=== PATIENT | female | born 1970 | race Caucasian/White ===

== ENCOUNTER 2019-07-11 17:21 | Outpatient (CLI) | payer OTHER, SELFPAY ==
--- NOTE | ~2019-07-11 | MM_ITS ---
EXAMINATION: MM screening anusha BI w andrea HISTORY: Screening mammogram TECHNIQUE: Craniocaudal and mediolateral oblique 3-D tomosynthesis images were obtained and synthetic 2-D images were generated. CAD analysis was submitted and interpreted. COMPARISON: 05/07/2014 BREAST PARENCHYMAL COMPOSITION: There are scattered areas of fibroglandular density. FINDINGS: There is no evidence of suspicious mass, calcification, or architectural distortion to sugg est malignancy in either breast. There has been no suspicious interval change. IMPRESSION: 1. No mammographic evidence of malignancy. 2. Recommend routine screening mammography in one year. BI-RADS Category 1: Negative Reviewed, dictated and finalized at location A. TANK OPERATOR
== END 2019-07-11 17:22 | disposition home or self-care (01) ==
PROVIDERS: PCP Family Medicine
DX: Z12.31 Encounter for screening mammogram for malignant neoplasm of breast (principal)
CPT/HCPCS: 77063; 77067

== ENCOUNTER 2020-06-04 12:40 | Outpatient (NON) | payer OTHER, SELFPAY ==
[2020-06-04 23:03] LABS: SARS-CoV-2 RNA PCR Negative
== END 2020-06-04 12:41 ==
LOC: ANHCOVIDDT 12:41
PROVIDERS: PCP Family Medicine; Visit Provider Physician Assistant Medical
DX: R05 Cough (principal); R09.81 Nasal congestion; R06.02 Shortness of breath; Z20.828 Contact with and (suspected) exposure to other viral communicable diseases
CPT/HCPCS: 87635; C9803; U0003

== ENCOUNTER 2021-12-07 13:14 | Emergency (ER) | payer OTHER, SELFPAY ==
[2021-12-07 13:17] VITALS: BP 165/99; PULSE 74; RESP 16; TEMP 37.1; O2SAT 100
[2021-12-07 13:20] VITALS: BP 165/99; PULSE 74; RESP 16; TEMP 37.1; O2SAT 100
--- NOTE | 2021-12-07 13:47 | ED.DIZZY ---
HPI - Dizziness General Chief Complaint: Dizziness Stated Complaint: DIZZY Time Seen by Provider: 12/07/21 13:41 Source: patient Mode of arrival: ambulatory Limitations: no limitations History of Present Illness HPI Narrative: Patient presents today complaining of a 2-day history of vertigo symptoms that she characterizes by left ear muffling, room spinning with head movement, and left ear pressure. States she has had vertigo symptoms in the past and is familiar with the Laura Manuever that she has tried at home. She had some vomiting on the first day of symptoms, but none since then. She also has nasal congestion and rhinorrhea. She has tried some DayQuil without much relief. She has tried meclizine in the past, but did not like the fact that it made her drowsy and dry. Related Data Allergies Allergy/AdvReac Type Severity Reaction Status Date / Time Sulfa (Sulfonamide Allergy Unknown Skin Verified 12/07/21 13:19 Antibiotics) Reaction Review of Systems Review of Systems: CONSTITUTIONAL: Denies body aches, fever, chills, or sweats. EYES: Denies visual changes, redness, or discharge. ENT: Denies sore throat, or otalgia.+ Rhinorrhea, congestion, left ear pressure and muffling CARDIOVASCULAR: Denies chest pain, palpitations, or edema. RESPIRATORY: Denies cough or dyspnea. GASTROINTESTINAL: Denies abdominal pain, nausea, vomiting, or diarrhea. GENITOURINARY: Denies dysuria or hematuria. SKIN: Denies rash, itching, or wounds. MUSCULOSKELETAL: Denies back pain, joint pain, or myalgia. NEUROLOGIC: Denies headache, numbness, tingling, or weakness.+ Dizziness PSYCH: Denies depression or anxiety. [facility] Surgical History Surgical History History of tonsillectomy and adenoidectomy Family History Family History Grandparent Diabetes mellitus Depression Family history of elevated blood lipids Mother Family history of osteoporosis Father Family history of elevated blood lipids Other Cerebrovascular accident Family history of alcoholism Family history of arthritis Family history of mental disorder Social History Social History (Reviewed 12/07/21 @ 13:50 by Claudia Vanegas, AMOL, Kristy Alcohol intake: current Comments At time of signature, I have reviewed and agree with nursing past medical, surgical, social and family history unless otherwise noted. Please see nursing chart for further information. There is no relevant family history pertinent to the presenting complaint Exam Narrative: GENERAL: Well-appearing, well-nourished, and in no acute distress. HEAD: Normocephalic, atraumatic. EYES: EOMI. PERRL. No nystagmus. No redness or drainage. Conjunctivae normal. ENT: Mucous membranes pink and moist. Nares clear. No rhinorrhea. Bilateral TMs normal with middle ear effusions, left greater than right. NECK: Normal AROM. Supple. No lymphadenopathy. CHEST: No respiratory distress. EXTREMITIES: Normal range of motion. No edema. SKIN: Warm, dry, no rash. Capillary refill normal. Normal skin turgor. NEURO: No focal deficits. Alert and oriented x3. Gait steady. PSYCH: Normal affect. No signs of depression or anxiety. Course Course Level of Care: Express Care Visit Vital Signs Vital signs: Vital Signs Temperature 98.8 F 12/07/21 13:17 Pulse Rate 74 12/07/21 13:17 Respiratory Rate 16 12/07/21 13:17 Blood Pressure 165/99 H 12/07/21 13:17 Pulse Oximetry 100 12/07/21 13:17 Oxygen Delivery Room Air 12/07/21 13:17 Temperature 98.8 F 12/07/21 13:20 Pulse Rate 74 12/07/21 13:20 Respiratory Rate 16 12/07/21 13:20 Blood Pressure 165/99 H 12/07/21 13:20 Pulse Oximetry 100 12/07/21 13:20 Oxygen Delivery Room Air 12/07/21 13:20 Reviewed. Pt has been instructed to follow up with her PCP regarding her elevated blood pressure today. CHOLO Lopez
== END 2021-12-07 13:56 | disposition home or self-care (01) ==
PROVIDERS: Emergency Provider Nurse Practitioner; PCP Family Medicine
DX: H74.8X3 Other specified disorders of middle ear and mastoid, bilateral (principal); R42 Dizziness and giddiness
CPT/HCPCS: 99213; G0463

== ENCOUNTER 2022-10-27 20:50 | Inpatient (IN) | payer OTHER, SELFPAY ==
--- NOTE | ~2022-10-27 | CT_ITS ---
EXAMINATION: CT brain wo con DATE: 10/27/2022 21:50 INDICATION: seizure activity, AMS . TECHNIQUE: Computed tomography (CT) of the head was performed without intravenous contrast. The mA wa s adjusted according to patient size. Iterative reconstruction technique was employed. The dose-lengt h product was 1362.00 mGy-cm. COMPARISON: None. FINDINGS: Motion limited examination despite repeated attempts No acute intracranial hemorrhage or extra-axial fluid collection. No hydrocephalus, mass, or herniation. No acute ischemic infarct. Unremarkable dural venous sinus attenuation. No acute osseous abnormality. The aerated spaces are clear. IMPRESSION: Motion limited examination. Within that constraint, no definite acute intracranial process. Reviewed, dictated and finalized at location K. IMPRESSION: Motion limited examination. Within that constraint, no definite acute intracran ial process.
--- NOTE | ~2022-10-27 | XR_ITS ---
EXAMINATION: XR chest 1V portable Exam Date/Time: 10/27/2022 21:10 CDT HISTORY: seizure activity, AMS Comparison: None. RESULT: Lines, tubes, and devices: None. Lungs and pleura: Clear. Cardiomediastinal silhouette: Unremarkable. Other: No acute osseous or upper abdominal finding. IMPRESSION: No acute cardiopulmonary process. Reviewed, dictated and finalized at location K.
--- NOTE | ~2022-10-27 | MR_ITS ---
MRI of the brain Clinical History: Altered mental status Technique: Axial and sagittal T1-weighted images were acquired. These were followed by axial T2-weigh huma, diffusion weighted, gradient, and FLAIR images. Findings: There is minimal chronic white matter change in the periventricular white matter bilaterall y. No acute infarct, intracranial hemorrhage, or mass lesion. Ventricles and subarachnoid spaces are unremarkable. Orbits are unremarkable. Paranasal sinuses and m astoid air cells are clear. Major intracranial flow voids are intact. Sagittal midline structures are intact. IMPRESSION: Minimal chronic microvascular ischemic change, otherwise unremarkable exam. Reviewed, dictated and finalized at location M.
--- NOTE | 2022-10-27 20:41 | ED.PSYCH ---
HPI - Psych General Chief Complaint: Psychiatric Symptoms Stated Complaint: psych Source: EMS Mode of arrival: EMS Limitations: altered mental status History of Present Illness HPI Narrative: Patient is a 51-year-old female presenting via EMS for altered mental status. Patient has never been seen at this facility before per my external medical record review. Patient was arrested on felony charges today, in the holding area waiting for booking, when staff at the facility noticed the patient was not responsive. No focal tonic back clonic activity was noted but patient noted to have blood present in her mouth, tongue abrasions, thus thought that maybe she had seizure activity. No urinary incontinence. Patient was confused, EMS was contacted and patient was confused and agitated in route. Vital signs stable. Secondary to patient agitation, glucose was not obtained nor was IV access. No known medical history on the patient. Has been at the facility for greater than 3 hours. Per police, normal mentation prior to that. Additional history limited secondary to altered mental status. Reviewed patient's chart from chart merger, patient with no significant medical history. Mild remote history of leukopenia which I reviewed external medical records, this was found to be benign with no follow-up recommended. Otherwise, patient had routine primary care physician follow-up, history of mild anxiety. No noted seizure history. Related Data Allergies Allergy/AdvReac Type Severity Reaction Status Date / Time Unable to Assess Allergy Verified 10/27/22 20:58 Review of Systems Review of Systems: ROS unobtainable: Yes unobtainable due to mental status PMFSH Past Medical History Medical History (Updated 10/28/22 @ 01:52 by Saima Dunn MD) Anxiety Surgical History Surgical History (Updated 10/27/22 @ 20:58 by Saima Dunn MD) No pertinent past surgical history Social History Social History (Updated 10/27/22 @ 21:17 by Saima Dunn MD) Smoking status: Former smoker Additional smoking assessment comments: Cessation in 1999 per chart review Alcohol intake: current Alcohol use details: 20 per week per chart review Substance use: never Living arrangements: incarcerated Gender identity (if verbalized by the patient): Female Exam Narrative: GENERAL: Awake, confused, mildly agitated HEAD: Normocephalic, atraumatic. EYES: PERRLA and EOMI. ENT: Nares clear, no rhinorrhea or epistaxis. Mucous membranes moist. Tongue abrasions present. No large laceration. NECK: Supple. CHEST: No respiratory distress, breathing even and non labored HEART: Regular rate, sinus rhythm ABDOMEN:Non distended, non tender EXTREMITIES: Normal range of motion. No edema. SKIN: Warm, dry, no rash. NEURO:No focal deficits. Patient moving all extremities spontaneously. Strength 5/5 in upper and lower extremities. Does not follow commands. Does not state her name. Course Vital Signs Vital signs: Vital Signs Pulse Rate 88 10/27/22 20:48 Respiratory Rate 23 H 10/27/22 20:48 Blood Pressure 147/91 H 10/27/22 20:48 Pulse Oximetry 98 10/27/22 20:48 Oxygen Delivery Room Air 10/27/22 20:48 Pulse Rate 88 10/27/22 20:48 Respiratory Rate 23 H 10/27/22 20:48 Blood Pressure 147/91 H 10/27/22 20:48 Pulse Oximetry 98 10/27/22 20:48 Oxygen Delivery Room Air 10/27/22 20:48 MDM - Psych MDM Narrative Medical decision making narrative: Patient presenting for evaluation of altered mental status, potential seizure although this was unwitnessed. No urinary continence at the time of assessment but patient with tongue abrasion without laceration. IV access obtained and labs are drawn. EKG without acute ischemic changes. Glucose within normal limits. Patient with severe hyponatremia. Given concern for seizure in setting of hyponatremia, patient was given hypertonic saline. Patient with agitation, requ
[2022-10-27 20:48] VITALS: BP 147/91; PULSE 88; RESP 23; O2SAT 98
--- NOTE | 2022-10-27 20:55 | ECG_ITS ---
Measurements Intervals [place] Rate: 84 P: 72 AR: 151 QRS: 56 QRSD: 92 T: 64 QT: 403 QTc: 476 Interpretive Statements SINUS RHYTHM POSSIBLE LEFT ATRIAL ENLARGEMENT BORDERLINE ECG NO PREVIOUS ECG AVAILABLE FOR COMPARISON Electronically Signed On 10-28-2022 6:46:12 CDT by Rey Robbins D.O.
[2022-10-27] MEDS: LORazepam INJ (*CRX) 2 MG/ML VIAL 1 MG IV PUSH ×2 (21:23→21:35)
[2022-10-27] MEDS: ONDANSETRON INJ 4 MG/2 ML VIAL IV PUSH (21:23)
[2022-10-27] MEDS: SODIUM CHLORIDE 0.9% IV 1,000 ML 999 ML IV CONT (21:26)
[2022-10-27 21:33] LABS: Basophils Percent Auto 0.3 % (0.2-1.2); Hemoglobin 11.6 g/dL (12.0-15.0); Immature Granulocyte Absolute 0.02 K/mm3 (0.00-0.031); Immature Granulocyte Percent A 0.3 % (0-0.5); Lymphocytes Absolute Auto 1.17 K/mm3 (0.9-3.2); Lymphocytes Percent Auto 18.1 % (18.3-44.2); Mean Corpuscular HGB Conc 35.2 g/dl (32-36); Mean Corpuscular Hemoglobin 30.9 pg (26-34); Mean Corpuscular Volume 87.8 fl (80-100); Mean Platelet Volume 9.4 fl (7.4-10.4); Monocytes Absolute Auto 0.6 K/mm3 (0.1-0.6); Monocytes Percent Auto 8.6 % (2.6-8.5); Neutrophils Absolute Auto 4.7 K/mm3 (1.3-6.7); Neutrophils Percent Auto 72.7 % (45.5-73.1); Platelet Count Result 329 k/mm3 (150-375); Red Blood Count 3.76 M/mm3 (4.2-5.4); White Blood Count 6.5 K/mm3 (4.5-10.0)
[2022-10-27 21:47] LABS: Alanine Aminotransferase 51 U/L (6-35); Albumin Level 4.2 g/dL (3.5-5.1); Alkaline Phosphatase 46 U/L (38-126); Anion Gap 10 mmol/L (8-16); Aspartate Amino Transferase 65 U/L (14-36); Bilirubin,Total 1.4 mg/dL (0.2-1.3); Blood Urea Nitrogen 5 mg/dL (7-17); Calcium 8.4 mg/dL (8.4-10.2); Carbon Dioxide 22 mmol/L (22-30); Chloride 79 mmol/L (98-107); Estimated CRCL calculation 121 ml/min; Estimated Glomerular Filt Rate > 60; Glucose 147 mg/dL (65-110); Potassium 3.6 mmol/L (3.4-5.0); Sodium 111 mmol/L (137-145)
[2022-10-27 21:48] LABS: Appearance Urine Cloudy (Clear); Bacteria Urine None Seen /hpf; Bilirubin Urine Negative (Negative); Blood Urine Negative (Negative); Color Urine Yellow (Yellow); Glucose Urine UA Negative (Negative); Ketones Urine 1+ mg/dL (Negative); Lactic Acid Reflex 5.6 mmol/L (0.7-2.0); Leukocyte Esterase Ur Negative LEU/UL (Negative); Nitrate Urine Negative (Negative); Non Pathogenic Casts 0-2; Protein Urine Trace mg/dL (Negative); RBC Urine 0-2 /hpf (0-2); Specific Grav Ur 1.017 (1.001-1.035); Squamous Epithelial Cell Urine None seen /hpf (Few); Urobilinogen Urine 0.2 mg/dL (<2.0); WBC Urine 0-5 /hpf
[2022-10-27 21:49] LABS: Troponin I 0.012 ng/mL (0.000-0.034)
[2022-10-27 21:51] LABS: Add Urine Microscopic? NO
[2022-10-27 22:01] LABS: Acetaminophen < 10 ug/mL (10-30); Ethanol < 10 mg/dL (<10); Salicylate < 1.0 mg/dL (2-20)
[2022-10-27] MEDS: HALOPERIDOL LACTATE 5 MG/ML VIAL 2 MG IV PUSH (22:05)
[2022-10-27] MEDS: diphenhydrAMINE HCl INJ 50 MG/ML VIAL 25 MG IV PUSH (22:05)
[2022-10-27] MEDS: FOLIC ACID 1 MG/0.2 ML INJ IV PUSH (22:06)
[2022-10-27] MEDS: THIAMINE HCL 200 MG/2 ML VIAL 100 MG IV PUSH (22:15)
[2022-10-27] MEDS: SODIUM CHLORIDE 3% 150 ML 30 ML IV CONT (22:16)
[2022-10-27 22:36] LABS: Amphetamine Screen Urine Negative (Negative); Barbiturate Screen Urine Negative (Negative); Benzodiazepines Screen Urine Positive (Negative); Cannabinoid Screen Urine Negative (Negative); Cocaine Screen Urine Negative (Negative); Methadone Screen Urine Negative (Negative); Opiate Screen Urine Negative (Negative); Phencyclidine Screen Urine Negative (Negative)
[2022-10-27 23:52] LABS: Device ROOM AIR; Fractional Inspired Oxygen 21 %; PCO2 VBG 34.1 mmHg (42.0-48.0); PO2 VBG 51.2 mmHg (35.0-45.0); pH VBG 7.446 (7.300-7.400)
[2022-10-28] VITALS (27 sets, daily range): BP systolic 94–116; BP diastolic 50–76; PULSE 51–90; RESP 18–24; TEMP 36.4–37.1; O2SAT 97–100; BMI 23.1
--- NOTE | 2022-10-28 | ECHO_ITS ---
Patient Info Name: Mara Anand Age: 51 years : 1970 Gender: Female Ht: 70 in Wt: 154 lbs BSA: 1.86 m2 HR: 64 bpm BP: 95 / 53 mmHg Heart Rhythm: Sinus Rhythm Technical Quality: Good Exam Date: 10/28/2022 1:13 PM Exam Location: [facility] Patient Status: Inpatient Admit Date: 10/27/2022 Staff Ordering Physician: Rodney Gonzales MD Research Attorney: Vianca Burch RDCS Attending Provider: Trini Faustin MD Exam Type: CA echo doppler color flow Study Info Indications - elevated trop Complete two-dimensional, color flow and Doppler transthoracic echocardiogram is performed. Summary 1. Complete two-dimensional, color flow and Doppler transthoracic echocardiogram is performed. 2. Left ventricular chamber dimension is normal. 3. Left ventricular systolic function is normal, estimated at 55-60%. 4. The left ventricular diastolic function is normal. 5. E/e' 8 is minimally elevated. 6. There is trace mitral valve regurgitation. 7. There is trace tricuspid valve regurgitation. 8. Right ventricular systolic pressure is 17 mmHg which is normal pulmonary pressure. Left Ventricle E/e' 8 is minimally elevated. Left ventricular chamber dimension is normal. Left ventricular systolic function is normal, estimated at 55-60%. The left ventricular diastolic function is normal. Right Ventricle Right ventricular systolic function is normal and with normal TAPSE 2.3 cm. Right ventricular chamber dimension is normal. Left Atria Left atrial chamber dimension is normal. Right Atria Right atrial chamber dimension is normal. Aortic Valve The aortic valve is trileaflet. There is no aortic valve stenosis. There is no aortic valve regurgitation. Pulmonic Valve There is no pulmonic regurgitation. Mitral Valve There is no mitral valve stenosis. There is trace mitral valve regurgitation. Tricuspid Valve Right ventricular systolic pressure is 17 mmHg which is normal pulmonary pressure. There is trace tricuspid valve regurgitation. Pericardium/Pleural There is no pericardial effusion. Inferior Vena Cava Normal inferior vena cava with >50% collapse upon inspiration consistent with normal right atrial pressure, 5 mmHg. Aorta The aortic root size at the sinus of Valsalva is normal. Tricuspid Valve Name Value Normal Estimated PAP/RSVP RA Pressure 5 mmHg <=5 Report Signatures
[2022-10-28 00:06] LABS: Anion Gap 5 mmol/L (8-16); Blood Urea Nitrogen 4 mg/dL (7-17); Calcium 7.9 mg/dL (8.4-10.2); Carbon Dioxide 25 mmol/L (22-30); Chloride 84 mmol/L (98-107); Estimated CRCL calculation 188 ml/min; Estimated Glomerular Filt Rate > 60; Glucose 106 mg/dL (65-110); Potassium 4.5 mmol/L (3.4-5.0); Sodium 114 mmol/L (137-145)
[2022-10-28 00:13] LABS: Sodium Urine Random 29 meq/L
[2022-10-28 00:14] LABS: Reflex Lactic Acid Yes or No Add Lactic
[2022-10-28] MEDS: LORazepam INJ (*CRX) 2 MG/ML VIAL 1 MG IV PUSH (01:15)
[2022-10-28] MEDS: dexmedeTOMIDine 400 MCG/100 ML 400 MCG/100 ML BAG 27.38 MCG IV CONT ×4 (01:40→12:14)
--- NOTE | 2022-10-28 01:45 | ADMGEN ---
This patient, Mara Anand, was admitted to Intensive Care Unit-11. Patient/family oriented to hospital policies and general routines including ID bracelet, bed and alarms, visiting hours, pain management, procedures, bathroom and other care routines, personal items, smoking policy, room service/diet, and visiting hours. Information on how to activate the Rapid Response Team has been discussed. Patient/Family are encouraged to report perceived risks to care and to ask questions if they do not understand what they are told or what they should do.
[2022-10-28 02:06] LABS: Lactic Acid 1.2 mmol/L (0.7-2.0)
[2022-10-28 02:24] LABS: Troponin I 0.055 ng/mL (0.000-0.034)
--- NOTE | 2022-10-28 02:45 | PM.IMHP ---
H&P: HPI History of Present Illness Date/Time: 10/28/22 02:45 Chief Complaint: altered mental status Narrative: This is a 51-year-old female who was brought from prison after she was found unresponsive and with blood in her mouth this was not witnessed unknown if seizure episodes patient was confused and restless on route in the ambulance. Upon arrival to emergency room patient was delirious, thrashing about. History has been obtained upon reviewing emergency room medical records. Preliminary workup was significant for chemistry panel with a sodium of 111. Patient is unable to give any history due to altered mental status. chest x-ray was reported as: EXAMINATION:? XR chest 1V portable Exam Date/Time:? 10/27/2022 21:10 CDT HISTORY: seizure activity, AMS ? Comparison:? None. RESULT: Lines, tubes, and devices:? None. Lungs and pleura:? Clear. Cardiomediastinal silhouette:? Unremarkable. Other:? No acute osseous or upper abdominal finding. ? IMPRESSION: No acute cardiopulmonary process. EXAMINATION: CT brain wo con DATE: 10/27/2022 21:50 INDICATION: seizure activity, AMS . TECHNIQUE: Computed tomography (CT) of the head was performed without intravenous contrast. The mA was adjusted according to patient size. Iterative reconstruction technique was employed. The dose-length product was 1362.00 mGy-cm. COMPARISON: None. FINDINGS: Motion limited examination despite repeated attempts No acute intracranial hemorrhage or extra-axial fluid collection. No hydrocephalus, mass, or herniation. No acute ischemic infarct. Unremarkable dural venous sinus attenuation. No acute osseous abnormality. The? aerated spaces are clear. IMPRESSION:? Motion limited examination. Within that constraint, no definite acute intracranial process. Review of Systems Review of Systems: ROS unobtainable: Yes unobtainable due to mental status ( Delirium) [facility] Past Medical History Medical History (Updated 10/28/22 @ 01:52 by Saima Dunn MD) Anxiety Surgical History Surgical History (Updated 10/27/22 @ 20:58 by Saima Dunn MD) No pertinent past surgical history Social History Social History (Updated 10/27/22 @ 21:17 by Saima Dunn MD) Smoking status: Former smoker Additional smoking assessment comments: unable to assess Alcohol intake: current Alcohol use details: 20 per week per chart review Substance use: never Living arrangements: incarcerated Gender identity (if verbalized by the patient): Female Meds Home Medications and Allergies Allergies Allergy/AdvReac Type Severity Reaction Status Date / Time Unable to Assess Allergy Verified 10/27/22 20:58 Vital Signs Vital Signs - 24 hr 10/27/22 20:48 10/28/22 01:41 10/28/22 01:51 Pulse Rate 88 74 73 Respiratory Rate 23 H 19 18 Blood Pressure 147/91 H 112/76 Pulse Oximetry 98 Oxygen Delivery Room Air Exam Narrative: patient is laying in bed Const: General: comfortable, no acute distress, well developed and average body habitus Nutritional Appearance: average body habitus Orientation/consciousness: Other orientation findings ( sedated) Limitations: altered mental status HENMT: Head: normal to inspection, normocephalic and atraumatic Ears: hearing grossly normal bilaterally Face/Nose/Sinus: normal facial exam Face and sinus: normal facial exam Mouth: Yes other ( dry blood seen around the mouth ) Eyes: General: appearance normal, both eyes and all related structures Pupils: Equal, round and reactive pupils present EOM: EOMs intact bilaterally Other: 2 mm in diameter Neck: Neck: full ROM, no lymphadenopathy and no JVD Thyroid: thyroid normal Lymphatic: no lymphadenopathy noted Resp: Effort & Inspection: normal respiratory effort and able to speak in complete sentences Auscultation: clear to auscultation bilaterally Cardio: Jugular venous distension: no JVD Rate: regular rate
[2022-10-28 03:16] LABS: Anion Gap 5 mmol/L (8-16); Blood Urea Nitrogen 4 mg/dL (7-17); Calcium 7.6 mg/dL (8.4-10.2); Carbon Dioxide 25 mmol/L (22-30); Chloride 83 mmol/L (98-107); Estimated CRCL calculation 148 ml/min; Estimated Glomerular Filt Rate > 60; Glucose 117 mg/dL (65-110); Potassium 3.5 mmol/L (3.4-5.0); Sodium 113 mmol/L (137-145)
[2022-10-28 04:47] LABS: Troponin I 0.044 ng/mL (0.000-0.034)
[2022-10-28 07:00] LABS: Anion Gap 4 mmol/L (8-16); Blood Urea Nitrogen 4 mg/dL (7-17); Calcium 8.4 mg/dL (8.4-10.2); Carbon Dioxide 24 mmol/L (22-30); Chloride 95 mmol/L (98-107); Estimated CRCL calculation 148 ml/min; Estimated Glomerular Filt Rate > 60; Glucose 128 mg/dL (65-110); Potassium 3.9 mmol/L (3.4-5.0); Sodium 123 mmol/L (137-145)
[2022-10-28 08:12] LABS: Sodium 125 mmol/L (137-145)
[2022-10-28 08:25] LABS: Creatine Kinase 2189 U/L (30-135)
[2022-10-28] MEDS: DEXTROSE 5% IN WATER 500 ML 250 ML IV CONT ×2 (08:31→19:33)
[2022-10-28] MEDS: THIAMINE HCL 200 MG/2 ML VIAL 100 MG IV PUSH (08:32)
[2022-10-28] MEDS: DESMOPRESSIN ACETATE 4 MCG/ML AMP 2 MCG SUB-Q (08:39)
[2022-10-28] MEDS: FOLIC ACID 1 MG/0.2 ML INJ IV PUSH (08:58)
[2022-10-28] MEDS: LORazepam INJ (*CRX) 2 MG/ML VIAL IV PUSH ×3 (08:58→11:51)
--- NOTE | 2022-10-28 10:05 | WPDNEURCNPN ---
Assessment and Plan Assessment and plan (1) Seizure-like activity: Code(s): R56.9 - Unspecified convulsions Status: Acute (2) Acute alteration in mental status: Code(s): R41.82 - Altered mental status, unspecified Status: Acute (3) Acute hyponatremia: Code(s): E87.1 - Hypo-osmolality and hyponatremia Status: Acute Plan Mara Anand is a 51 year old female with a history of alcohol use, anxiety presenting due to altered mental status. Concern for possible seizure in the setting of severe hyponatremia. Given provoked nature of seizure, she does not require maintenance anti-seizure medication presently. - Routine EEG - MRI brain when stable Consult date: 10/28/22 Reason for consult: Concern for seizure-like activity HPI: Mara Anand is a 51 year old female with a history of alcohol use, anxiety presenting due to altered mental status. Patient was arrested on felony charges on the day of presentation. While in the holding area, staff at the facility noted that patient was unresponsive. She did not have any convulsive movements, but they noted that she had blood in her mouth, so there was concern for possible seizure. There were tongue abrasions, no lacerations, and no urinary incontinence. EMS was called and patient was notably confused and agitated at that ttime. In the ED, her sodium was noted to be 111. Patient was treated with hypertonic saline in the emergency room. She was quite agitated, so she did receive haldol and benzodiazepine dose. CT head was limited due to movement artifact, but did not show any acute findings. Nephrology has been consulted for management of hyponatremia. Patient is currently admitted to the ICU. She is being sedated with Precedex at this time. Her most recent sodium is 125. Urine drug screen was positive for benzo and ethanol level was negative. Review of Systems Review of Systems: ROS unobtainable: Yes unobtainable due to medical condition and unobtainable due to mental status PMFSH Past Medical History Medical History Anxiety Surgical History Surgical History History of tonsillectomy and adenoidectomy No pertinent past surgical history Family History Family History Grandparent Diabetes mellitus Depression Family history of elevated blood lipids Mother Family history of osteoporosis Father Family history of elevated blood lipids Other Cerebrovascular accident Family history of alcoholism Family history of arthritis Family history of mental disorder Social History Social History Smoking status: Former smoker Additional smoking assessment comments: unable to assess Alcohol intake: current Alcohol use details: 20 per week per chart review Substance use: never Lack of Transportation: No Lack of Food: Sometimes True Current Housing: I Have Housing Concerned About Future Housing: No Difficulty Paying Gas/Electric Bills: No Difficulty Paying for Meds: No Currently Unemployed: No Education: Master's Degree or Higher Difficulty w/ Childcare or Family Care: No Living arrangements: incarcerated Gender identity (if verbalized by the patient): Female Meds Home Medications and Allergies Home Medications Medication Instructions Recorded Confirmed Type amoxicillin 500 mg capsule 500 mg PO Q8H #21 caps 07/22/22 Rx alprazolam 0.25 mg tablet 0.25 mg PO TID PRN anxiety #30 tabs 10/26/22 Rx alprazolam 0.25 mg tablet mg 10/28/22 History Allergies Allergy/AdvReac Type Severity Reaction Status Date / Time Sulfa (Sulfonamide Allergy Unknown Skin Verified 10/28/22 08:49 Antibiotics) Reaction Vital Signs Vital Signs - 24 hr 10/27/22 20:48 10/28/22 01:41 10/28/22 01:51 Te
--- NOTE | 2022-10-28 11:25 | PCNEURO ---
EEG was attempted this morning but patient is very confused and uncooperative. Willl try again tomorrow.
[2022-10-28] MEDS: LIDOCAINE HCL 1% PF INJ 5 ML VIAL INFILTRATE (12:00)
[2022-10-28 12:41] LABS: Glucose Point of Care 134 mg/dl (65-105)
--- NOTE | 2022-10-28 12:42 | PM.CNNEP ---
Assessment and Plan Assessment and plan (1) Hyponatremia: Code(s): E87.1 - Hypo-osmolality and hyponatremia Status: Acute Assessment and Plan: no previous history noted admission sodium 111 with suspected seizure activity s/p bolus of 3% saline in ER unfortunately, evidence of overcorrection by AM labs getting D5W IVFs + DDAVP to slow down correction goal of therapy is to keel sodium ~ 117 - 119 today (6 - 8meq change) follow trend of sodium closely (2) Acute alteration in mental status: Code(s): R41.82 - Altered mental status, unspecified Status: Acute Assessment and Plan: presumed secondary to low sodium and possibly post-ictal state +/- benzodiazepine use further brain imaging when more stable continue supportive therapy (3) Seizure-like activity: Code(s): R56.9 - Unspecified convulsions Status: Acute Assessment and Plan: no witnessed event however, history somewhat suggestive (AMS with tongue abrasions) possibly precipitated by hyponatremia no further events since admission Neurology recommendations noted (4) Rhabdomyolysis: Code(s): M62.82 - Rhabdomyolysis Status: Acute Assessment and Plan: elevated CPK noted - presumed from agitation follow trend given getting hydration via D5W IVFs Long extensive discussion (> 25 minutes) with the patient's at bedside regarding all of the above issues and the current management/ plan of care in attempts to correct her sodium level and optimize her mentation. I will continue to follow the patient with you while she remains hospitalized to make further recommendations during her hospital course. Thank you for allowing me to participate in care of this patient. History of Present Illness Reason for Consult Consult date: 10/28/22 Reason for consult: hyponatremia Chief Complaint Chief complaint: Hyponatremia,Seizure,AMS History of Present Illness Narrative: All the information that I have obtained is from review of the electronic medical record as well as discussion with the physician/nurses involved in the patient's care as well as other family members present at bedside As the patient is unable to provide me with any meaningful history due to her altered mental status. The patient is a 51-year-old female with a past medical history as outlined below who was apparently found unresponsive while she was apparently in residential he yesterday evening. When she was found unresponsive, there is noted be abrasions to her tongue and blood in her mouth. There was suspicion that she may have had a seizure but there were no witnesses to such an event. She was brought to [facility] Emergency room for further assessment given her unresponsive state Workup and evaluation emergency room demonstrated patient be very confused, agitated, and restless in comparison to the report that she was found unresponsive. Her agitation was severe that she required sedation just obtain a CT scan of her brain as well as IV access. Routine blood test demonstrated sodium of 111 in association with normal renal function as well as a mildly elevated CPK. Her urine drug screen was positive for benzodiazepines but her alcohol level was not present. CT scan of her head as well as a chest x-ray were unremarkable. Given the a for mention hyponatremia and the suspicion of a seizure activity in the context of her altered mental status, she was given a bolus of 3% saline in an effort to improve her sodium level. Given her altered mental status as well as her severe hyponatremia, she was admitted to the ICU for further evaluation and therapy. By the time of her arrival to the intensive care unit, the patient's agitation and delirious state appeared to have worsened as she was attempting to get out of bed and pull at all of her lines in tubing. She had to be started on a Precedex infusion to calm her down given thes
[2022-10-28 12:52] LABS: Anion Gap 3 mmol/L (8-16); Blood Urea Nitrogen 6 mg/dL (7-17); Calcium 8.1 mg/dL (8.4-10.2); Carbon Dioxide 26 mmol/L (22-30); Chloride 96 mmol/L (98-107); Estimated CRCL calculation 121 ml/min; Estimated Glomerular Filt Rate > 60; Glucose 119 mg/dL (65-110); Potassium 3.8 mmol/L (3.4-5.0); Sodium 125 mmol/L (137-145)
--- NOTE | 2022-10-28 13:16 | WPDCNINT ---
Assessment and Plan Assessment and plan (1) Hyponatremia: Code(s): E87.1 - Hypo-osmolality and hyponatremia Status: Acute Assessment and Plan: Patient presented with sodium of 111 and as seizure was suspected patient was treated with a bolus of 3% saline in the ER Since then sodium has increased to 123 and then to 125. Communication Coordinator was consulted in ER and has taken over management. Patient was given DDAVP and D5 water at his direction along with plan to follow-up sodium levels Will defer management and workup to nephrology TSH was normal Serum and urine osmolalities pending (2) Acute alteration in mental status: Code(s): R41.82 - Altered mental status, unspecified Status: Acute Assessment and Plan: Multifactorial encephalopathy likely secondary to hyponatremia, possible postictal state from seizure and benzodiazepine. Currently on Precedex infusion p.r.n. benzodiazepine to controlled patient for own safety MRI is ordered since patient is in mental cuffs by police and also not cooperative, enough will defer MRI to when patient is more stable Continue thiamine and folic acid (3) Seizure-like activity: Code(s): R56.9 - Unspecified convulsions Status: Acute Assessment and Plan: Although seizure was not witnessed patient was found to be altered at the [facility] with a tongue abrasion noticed on exam in ER Light of hyponatremia as seizure was strongly suspected and patient was given hypertonic saline She has also received several doses of benzodiazepine Since admission to ICU she has not had any obvious clinical seizures Patient was on very low-dose of Xanax and I do not think Xanax withdrawal of 24 hours will explain EEG was attempted this morning but was unsuccessful as patient was uncooperative and I chose not to sedate patient for EEG as the results would not be beneficial (4) Rhabdomyolysis: Code(s): M62.82 - Rhabdomyolysis Status: Acute Assessment and Plan: Patient has rhabdomyolysis S likely secondary to muscle breakdown from agitation restraints Currently on D5 water to correct rapid correction of sodium Monitor CK level (5) Elevated troponin: Code(s): R77.8 - Other specified abnormalities of plasma proteins Status: Acute Assessment and Plan: Mild elevation in troponin which has been flat. No reported history of chest pain EKG does not show any ST elevation or ischemic changes Echo ordered and pending Plan DVT prophylaxis -SCDs Nutrition -NPO at this time Code Status - Full Code I spoke to patient's by phone and updated him with patient's current status and answered all his questions Total Critical Care Time - minutes Due to a high probability of clinically significant, life threatening deterioration, the patient required my highest level of preparedness to intervene emergently and I personally spent this critical care time directly and personally managing the patient. This critical care time included obtaining a history; examining the patient; pulse oximetry; ordering and review of studies; arranging urgent treatment with development of a management plan; evaluation of patient's response to treatment; frequent reassessment; and discussions with other providers. It was exclusive of separately billable procedures and treating other patients and teaching time. 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 A seizure was suspected but never witnessed. In ER patient was confused, agitated and restless. She had to be given sedatives to ob
[2022-10-28] MEDS: CENTRAL LINE FLUSH 10 ML IV PUSH ×2 (14:11→22:55)
[2022-10-28] MEDS: DEXTROSE 5% IN WATER 500 ML 200 ML IV CONT (14:11)
[2022-10-28] MEDS: dexmedeTOMIDine 400 MCG/100 ML 400 MCG/100 ML BAG 21.9 MCG IV CONT ×2 (16:34→20:47)
--- NOTE | 2022-10-28 17:23 | PC.NURSE ---
0750: Orders received from Dr. Gonzales for MRI and PICC placement. Per CHRISTOPHER Siegel, [facility] Deputies with patient are stating that all medical information and consents are to be done through the [facility] nurse, Jeremy Alejo. 0825: Spoke with Jeremy Alejo ([phone]) at the [facility]. Explained the orders received and that consent was required for the PICC, in addition to the MRI screening questionnaire that needed to be completed prior to the MRI. Requested permission to speak with the patient's which was initially denied. I expressed the importance of knowing whether or not the patient had certain items implanted prior to taking her for the MRI and that if we were unable to complete the screening form that the MRI would be canceled. At that time I was transferred to Eric ([phone]) to discuss the need to speak with the patient?s spouse in order to obtain accurate medical history and complete the MRI screening questionnaire as well as receive consent for the PICC line. Captain Reyes stated that he would need to discuss the request with his superiors. Gave my direct phone number for him to call back. 08:48: Received a phone call from chiara Michellegenevieve stating that he discussed the requests to speak with the patient's spouse with his superiors who approved the request. 0913: Call placed to patient?s spouse, Michael Anand. Explained that patient was brought to this facility last evening and the patient?s current medical status. Explained the physician?s orders for both the MRI and PICC placement. Reviewed and explained both procedures and allowed time for questions. Telephone consent received for the both the MRI and the PICC placement, witnessed by CHRISTOPHER Siegel. Completed MRI screening questionnaire at that time. Michael inquired as to how to obtain information on her condition going forward. Instructed Saeed to call [facility] as they had given instructions to not provide information or allow visitors. 0934: Updated Jeremy Alejo at the [facility] on the conversation with Michael Anand regarding his consent for the MRI and PICC placement. Sapna was notified at that time that Mr. Anand requested additional information on the patient and was directed to contact Mr. Alejo. 0942: Call received from Jeremy Alejo. Mr. Alejo provided information on medications patient stated she took at the time of her intake.
--- NOTE | 2022-10-28 17:29 | PC.NURSE ---
At approximately 1120, this patient's trade mark attorney Caro Patel, arrived in the ICU to see the patient. Deputies at bedside denied her visitation. Dr. Gonzales spoke briefly with Ms. Patel regarding her knowledge of the patient's medical history and mental status. Ms. Patel did express that the patient was not in a good place mentally during their conversation the day prior. Dr. Gonzales stated that he would be reaching out to the patient's spouse for additional medical information.
--- NOTE | 2022-10-28 17:56 | PC.NURSE ---
Returned phone call at approximately 1145 to Jeremy Alejo at the [facility]. Mr. Alejo requested an update on the condition of the patient and a status on the testing. Mr. Alejo provided an update which included a delay in the MRI due to the patient's ongoing agitation. Mr. Alejo reiterated that no information should be provided to the family.
--- NOTE | 2022-10-28 17:58 | PC.NURSE ---
1231: Spoke with Chief of Compliance and Risk, Timothy Douglas and MARIELLE Washington regarding events with this patient and the restrictions being given by [facility] in regards to providing information to the patient's spouse.
[2022-10-28 18:25] LABS: Sodium 122 mmol/L (137-145)
[2022-10-28 19:03] LABS: Glucose Point of Care 128 mg/dl (65-105)
--- NOTE | 2022-10-28 19:46 | PC.NURSE ---
At approximately 1530, deputies assigned to patient stated that the patient was no longer in their custody, and the deputies departed from the ICU.
[2022-10-28 23:13] LABS: Sodium 119 mmol/L (137-145)
[2022-10-29] VITALS (12 sets, daily range): BP systolic 94–120; BP diastolic 48–87; PULSE 61–103; RESP 17–25; TEMP 36.8–37.3; O2SAT 96–100
[2022-10-29] MEDS: dexmedeTOMIDine 400 MCG/100 ML 400 MCG/100 ML BAG 21.9 MCG IV CONT (01:11)
[2022-10-29 04:52] LABS: Hematocrit 27.7 % (37.0-47.0); Hemoglobin 9.6 g/dL (12.0-15.0); Mean Corpuscular HGB Conc 34.7 g/dl (32-36); Mean Corpuscular Hemoglobin 30.8 pg (26-34); Mean Corpuscular Volume 88.8 fl (80-100); Mean Platelet Volume 9.3 fl (7.4-10.4); Platelet Count Result 217 k/mm3 (150-375); Red Blood Count 3.12 M/mm3 (4.2-5.4); White Blood Count 6.6 K/mm3 (4.5-10.0)
[2022-10-29 05:07] LABS: Alanine Aminotransferase 47 U/L (6-35); Albumin Level 3.4 g/dL (3.5-5.1); Alkaline Phosphatase 42 U/L (38-126); Anion Gap 4 mmol/L (8-16); Aspartate Amino Transferase 113 U/L (14-36); Bilirubin,Total 0.8 mg/dL (0.2-1.3); Blood Urea Nitrogen 2 mg/dL (7-17); Calcium 8.1 mg/dL (8.4-10.2); Carbon Dioxide 24 mmol/L (22-30); Chloride 91 mmol/L (98-107); Estimated CRCL calculation 148 ml/min; Estimated Glomerular Filt Rate > 60; Glucose 154 mg/dL (65-110); Magnesium 1.8 mg/dL (1.6-2.3); Phosphorus 2.9 mg/dL (2.5-4.5); Potassium 3.5 mmol/L (3.4-5.0); Sodium 119 mmol/L (137-145)
[2022-10-29 06:28] LABS: Glucose Point of Care 123 mg/dl (65-105)
[2022-10-29 06:28] LABS: Glucose Point of Care 126 mg/dl (65-105)
--- NOTE | 2022-10-29 08:43 | WPDINTPN ---
Progress Note: A&P Assessment and Plan (1) Hyponatremia: Code(s): E87.1 - Hypo-osmolality and hyponatremia Status: Acute Assessment and Plan: Patient presented with sodium of 111 and as seizure was suspected patient was treated with a bolus of 3% saline in the ER Since then sodium has increased to 123 and then to 125. Etcher Electrolytic was consulted in ER and and has been managing. Patient was given DDAVP and D5 water at his direction and sodium decreased to 119 Will defer management and workup to nephrology TSH was normal Serum and urine osmolalities pending Most likely SIADH from stress as the likely etiology as patient does not drink huge amount of alcohol to explain significant hyponatremia (2) Acute alteration in mental status: Code(s): R41.82 - Altered mental status, unspecified Status: Acute Assessment and Plan: Multifactorial encephalopathy likely secondary to hyponatremia, possible postictal state from seizure and benzodiazepine. Patient was at that time started on precedex infusion and p.r.n. benzodiazepine to controlled patient for own safety Patient has improved significantly and now is alert oriented x3 and common appropriate. She is out of restraints. Discontinue Precedex. Patient has MRI ordered and she until now has reluctant to go for MRI due to feeling of claustrophobia. I have discussed with the patient and we will give her 1 dose of Ativan prior to MRI for anxiety and claustrophobia to get her through the procedure. Continue thiamine and folic acid for now (3) Seizure-like activity: Code(s): R56.9 - Unspecified convulsions Status: Acute Assessment and Plan: Although seizure was not witnessed patient was found to be altered at the [facility] with a tongue abrasion noticed on exam in ER Light of hyponatremia as seizure was strongly suspected and patient was given hypertonic saline She has also received several doses of benzodiazepine Since admission to ICU she has not had any obvious clinical seizures Patient was on very low-dose of Xanax which she used to take infrequently and I do not think Xanax withdrawal of 24 hours will explain 10/28 EEG was attempted in the morning but was unsuccessful as patient was uncooperative and I chose not to sedate patient for EEG as the results would not be beneficial EEG scheduled for today Patient currently not on any AEDs Seizure precautions are in place Neurology is following (4) Rhabdomyolysis: Code(s): M62.82 - Rhabdomyolysis Status: Acute Assessment and Plan: Patient has rhabdomyolysis S likely secondary to muscle breakdown from agitation restraints She received d5 water to correct rapid correction of sodium Check cK level (5) Elevated troponin: Code(s): R77.8 - Other specified abnormalities of plasma proteins Status: Acute Assessment and Plan: Mild elevation in troponin which has been flat. No reported history of chest pain EKG does not show any ST elevation or ischemic changes Echo was normal Plan DVT prophylaxis -SCDs Nutrition -start low-sodium diet Code Status - Full Code Incentive spirometry Transfer out of ICU today Subjective Date/time seen: 10/29/22 Patient has had significant improvement in her mental status since yesterday. This morning she is awake alert oriented x3, sitting in a bed and answering all questions appropriately. She does not remember what happened and last thing she remembers that she was in [facility]. She denies any suicidal ideations or attempts in the past. She denies any history of depression. She denies taking any substance. She takes Xanax once in a week at night to help her sleep. She states she drinks 1 beer and 2-3 glasses of wine 4 times a week. She denies any drug use or smoking. She has refused to take MRI and till now because of feeling claustrophobic. She states she would like to eat food. Patient denies fever, chest pain, shortness of breath, cough, naus
[2022-10-29] MEDS: CENTRAL LINE FLUSH 10 ML IV PUSH ×2 (09:48→14:36)
[2022-10-29] MEDS: POTASSIUM CHLORIDE 20 MEQ TABLET 40 MEQ PO (09:48)
[2022-10-29] MEDS: THIAMINE HCL 200 MG/2 ML VIAL 100 MG IV PUSH (09:48)
[2022-10-29] MEDS: FOLIC ACID 1 MG/0.2 ML INJ IV PUSH (09:49)
--- NOTE | 2022-10-29 10:59 | PCFNICU ---
ICU Rounding Note: Pt current nutrition is 2 gm Na. Last recorded weight is 73.6 kg. Bowel Motility:No BM reported. Labs Reviewed:Glu 154, ,Cr 0.4, BUN 2, Na 119, Alb 3.4 Meds Noted:Folic Acid, Thiamine Skin: WNL Additional Notes: Diet order has advanced to 2 gm Na and tolerating. Plans to downgrade from ICU status. No further nutritional interventions needed. Following daily in ICU rounds.
[2022-10-29 11:20] LABS: Anion Gap 6 mmol/L (8-16); Blood Urea Nitrogen 2 mg/dL (7-17); Calcium 8.3 mg/dL (8.4-10.2); Carbon Dioxide 24 mmol/L (22-30); Chloride 91 mmol/L (98-107); Estimated CRCL calculation 148 ml/min; Estimated Glomerular Filt Rate > 60; Glucose 102 mg/dL (65-110); Potassium 3.8 mmol/L (3.4-5.0); Sodium 121 mmol/L (137-145)
[2022-10-29 12:06] LABS: Creatine Kinase 5385 U/L (30-135)
[2022-10-29] MEDS: LORazepam INJ (*CRX) 2 MG/ML VIAL IV PUSH (12:08)
--- NOTE | 2022-10-29 12:15 | P.PNNP_ITS ---
Progress Note: A&P Assessment and Plan (1) Hyponatremia: Code(s): E87.1 - Hypo-osmolality and hyponatremia Status: Acute Assessment and Plan: * no previous history noted * admission sodium 111 with suspected seizure activity * s/p bolus of 3% saline in ER * unfortunately, evidence of overcorrection by AM labs yesteday (10/28/22) * s/p D5W IVFs + DDAVP to slow down correction * goal of therapy wass to get sodium ~ 117 - 119 yesterday (and this was acheived) * follow trend of sodium closely (2) Acute alteration in mental status: Code(s): R41.82 - Altered mental status, unspecified Status: Acute Assessment and Plan: * resolving * presumed secondary to low sodium and possibly post-ictal state +/- benzodiazepine use * further brain imaging when more stable * continue supportive therapy (3) Seizure-like activity: Code(s): R56.9 - Unspecified convulsions Status: Acute Assessment and Plan: * no witnessed event * however, history somewhat suggestive (AMS with tongue abrasions) * possibly precipitated by hyponatremia * no further events since admission * Neurology recommendations noted (4) Rhabdomyolysis: Code(s): M62.82 - Rhabdomyolysis Status: Acute Assessment and Plan: * elevated CPK noted - presumed from agitation * follow trend given getting hydration via D5W IVFs Will continue to follow. Subjective Date/time seen: 10/29/22 12:15 Interval history: Follow-up for acute hyponatremia. Mentation has significantly improved in the last 24 hours; sodium level correction slowed down yesterday with use of DDAVP and D5W IVFs as well; no apparent distress noted at this time. Exam Narrative: General: WD/WN female in NAD Heart: normal S1 and S2; no rub Lungs: clear to auscultation Abdomen: soft, nontender, nondistended, positive bowel sounds Extremities: no cyanosis or clubbing; no edema Skin: warm and dry Objective Data Vital Signs Vital Signs: Vital Signs Temp Pulse Resp BP Pulse Ox O2 Del Method 10/29/22 12:00 87 17 120/87 98 10/29/22 12:00 87 24 H 96 Room Air 10/29/22 12:00 87 10/29/22 10:00 88 10/29/22 10:00 80 10/29/22 08:00 Room Air 10/29/22 08:00 76 10/29/22 07:44 98.5 F 101 H 24 H 94/48 L 96 10/29/22 06:00 67 22 H 96/57 L 100 10/29/22 06:00 67 10/29/22 04:00 71 22 H 100 Room Air 10/29/22 04:00 98.5 F 70 23 H 118/69 100 10/29/22 04:00 70 10/29/22 02:00 98.2 F 71 22 H 120/68 100 10/29/22 02:00 68 10/29/22 00:00 98.5 F 61 22 H 106/49 L 100 10/29/22 00:00 66 20 100 Room Air 10/29/22 00:00 61 10/29/22 01:11 66 20 10/29/22 01:11 66 20 10/28/22 20:47 59 L 18 10/28/22 20:46 59 L 18 10/28/22 22:00 98.6 F 69 22 H 108/72 100 10/28/22 22:00 69 10/28/22 20:00 98.8 F 69 20 113/70 100 10/28/22 20:00 69 20 100 Room Air 10/28/22 20:00 69 10/28/22 18:00 62 22 H 108/67 100 10/28/22 19:34 56 L 18 10/28/22 18:00 64 10/28/22 16:00 55 L 10/28/22 16:00 97.6
--- NOTE | 2022-10-29 12:15 | PM.PNNEP ---
Progress Note: A&P Assessment and Plan (1) Hyponatremia: Code(s): E87.1 - Hypo-osmolality and hyponatremia Status: Acute Assessment and Plan: no previous history noted admission sodium 111 with suspected seizure activity s/p bolus of 3% saline in ER unfortunately, evidence of overcorrection by AM labs yesteday (10/28/22) s/p D5W IVFs + DDAVP to slow down correction goal of therapy wass to get sodium ~ 117 - 119 yesterday (and this was acheived) follow trend of sodium closely (2) Acute alteration in mental status: Code(s): R41.82 - Altered mental status, unspecified Status: Acute Assessment and Plan: resolving presumed secondary to low sodium and possibly post-ictal state +/- benzodiazepine use further brain imaging when more stable continue supportive therapy (3) Seizure-like activity: Code(s): R56.9 - Unspecified convulsions Status: Acute Assessment and Plan: no witnessed event however, history somewhat suggestive (AMS with tongue abrasions) possibly precipitated by hyponatremia no further events since admission Neurology recommendations noted (4) Rhabdomyolysis: Code(s): M62.82 - Rhabdomyolysis Status: Acute Assessment and Plan: elevated CPK noted - presumed from agitation follow trend given getting hydration via D5W IVFs Will continue to follow. Subjective Date/time seen: 10/29/22 12:15 Interval history: Follow-up for acute hyponatremia. Mentation has significantly improved in the last 24 hours; sodium level correction slowed down yesterday with use of DDAVP and D5W IVFs as well; no apparent distress noted at this time. Exam Narrative: General: WD/WN female in NAD Heart: normal S1 and S2; no rub Lungs: clear to auscultation Abdomen: soft, nontender, nondistended, positive bowel sounds Extremities: no cyanosis or clubbing; no edema Skin: warm and dry Objective Data Vital Signs Vital Signs: Vital Signs Temp Pulse Resp BP Pulse Ox O2 Del Method 10/29/22 12:00 87 17 120/87 98 10/29/22 12:00 87 24 H 96 Room Air 10/29/22 12:00 87 10/29/22 10:00 88 10/29/22 10:00 80 10/29/22 08:00 Room Air 10/29/22 08:00 76 10/29/22 07:44 98.5 F 101 H 24 H 94/48 L 96 10/29/22 06:00 67 22 H 96/57 L 100 10/29/22 06:00 67 10/29/22 04:00 71 22 H 100 Room Air 10/29/22 04:00 98.5 F 70 23 H 118/69 100 10/29/22 04:00 70 10/29/22 02:00 98.2 F 71 22 H 120/68 100 10/29/22 02:00 68 10/29/22 00:00 98.5 F 61 22 H 106/49 L 100 10/29/22 00:00 66 20 100 Room Air 10/29/22 00:00 61 10/29/22 01:11 66 20 10/29/22 01:11 66 20 10/28/22 20:47 59 L 18 10/28/22 20:46 59 L 18 10/28/22 22:00 98.6 F 69 22 H 108/72 100 10/28/22 22:00 69 10/28/22 20:00 98.8 F 69 20 113/70 100 10/28/22 20:00 69 20 100 Room Air 10/28/22 20:00 69 10/28/22 18:00 62 22 H 108/67 100 10/28/22 19:34 56 L 18 10/28/22 18:00 64 10/28/22 16:00 55 L 10/28/22 16:00 97.6 F 57 L 19 116/66 100 10/28/22 16:34 56 L 18 10/28/22 16:03 56 L 18 10/28/22 15:37 Room Air Intake/Output Intake/Output: Intake & Output 10/26/22 10/27/22 10/28/22 10/29/22 23:59 23:59 23:59 23:59 Intake Total 1000 1500 280 Output Total 5350 3100 Balance 1000 -5327 -8300 Meds/Results Medications: Active Medications Generic Name Dose Route Start Last Admin Trade Name Freq PRN Reason Stop Dose Admin Dextrose 12.5 gm 10/28/22 08:02 Dextrose 50% 25 Gm/50 Ml Syringe IV PUSH PRN PRN Hypoglycemia Protocol Folic Acid 1 mg 10/28/22 09:00 10/29/22 09:49 Folic Acid 1 Mg/0.2 Ml Inj IV PUSH 1 mg QAM EARLINE Administration Glucagon 1 mg 10/28/22 08:02 Glucagon For Inj 1 Mg Vial IM PRN PRN
[2022-10-29 14:47] LABS: Sodium 126 mmol/L (137-145)
[2022-10-29 18:45] LABS: Sodium 128 mmol/L (137-145)
[2022-10-29 18:54] LABS: Creatine Kinase 10598 U/L (30-135)
--- NOTE | 2022-10-29 19:00 | PC.NURSE ---
At approximately 1730. Patient and spouse inquired when anticipated discharge would occur. Educated patient/spouse on hyponatremia, treatment, and possible outcome if sodium levels corrected too quickly. Patient asked about the possibility of leaving AMA. Advised patient that I would soon draw 1800 sodium level, and report to Dr. Virgen, and ask when he anticipates discharge. 1800 sodium results, 128, called to Dr. Virgen, and order received for D5W 250ml x2 hours. Dr. Virgen advised that he anticipates patient may be discharged tomorrow, and he strongly advised against leaving AMA. This nurse educated patient/spouse on the need for continued treatment for hyponatremia. Patient is oriented to person, place, and time, vital signs within normal limits at this time, no complaints/distress noted at this time. Will continue to monitor closely.
[2022-10-29 19:11] LABS: Sodium Urine Random 14 meq/L
[2022-10-29 19:14] LABS: Creatinine Urine 13.2 mg/dL
--- NOTE | 2022-10-29 20:55 | SUR.PHASEI ---
Upon arrival of shift. Patient expressed desire to leave against medical advice. I educated patient on risks of condition especially seizures. Bargained to try to have her stay overnight. She was adamant on LEAVING. Educated on the fact that she won't get any additional medications in a discharge of this manner and she still would like to leave. Patient is alert and oriented x4. Removed her PICC line and miller. Educated on some common hyponatremia symptoms and to come back to ER [facility] if experiencing any of these. Alerted DR hennessy and Alicia CASTRO of [facility] discharge
--- NOTE | 2022-10-29 22:49 | P.PNCROSS_ITS ---
Event Note Event Note Event Note: I received a phone call from the patient's nurse at around 18:00. The patient r eports feeling better and she wished to leave the hospital. It was felt that she was not yet ready for discharge at this time. She and her spouse were educated regarding hyponatremia, the treatment of such, and possible outcomes if her sodium levels correct too quickly, including . It was strongly advised that she stay overnight as it was looking like she may very well end up being discharged tomorrow anyway. She instead chose to leave against medical advice, accompanied by her . Upon leaving the hospital she was alert and oriented x4 and there was nothing to suggest that she had altered decision making capacity. She was told that she could return at any point in time to continue treatment and that they should seek follow-up with her doctor at the earliest possible interval.
--- NOTE | 2022-10-30 09:07 | WPDNEUROLOGY ---
Neurology EEG Report General Information Date of Study: 10/29/22 TEST Routine EEG DIAGNOSIS Altered mental status; seizure CONDITION OF RECORDING Awake; movement artifact noted throughout recording. EEG NUMBER [id number] CLINICAL HISTORY Patient was found unresponsive with blood in her mouth and remained confused and isorienteated for about 16 hours. She was hyponatremic on presentation, to 111. EEG DESCRIPTION During the awake state with eyes closed the background consists of 8 Hz posterior dominant rhythm which attenuates appropriately with eye opening. The recording is continuous. There is a well developed anterior-posterior gradient. No significant asymmetries of background activities are noted. Patient did not enter drowsiness or stage II sleep. There are no epileptiform discharges or seizures during this recording. Hyperventilation and photic stimulation were not performed. IMPRESSION This is a normal routine EEG recorded in awake and asleep states. There are no electrographic seizures identified, nor are there any epileptiform discharges. Please note that a normal EEG cannot exclude a seizure disorder. Study is also limited due to motion artifact. Clinical correlation is recommended.
[2022-11-01 11:38] LABS: Osmolality, Urine 517 mOsm/kg (50-1200)
[2022-11-05 16:13] LABS: Chloride Rand Ur 23 mmol/L (32-290); Chloride/Creatinine Rand Ur 209 (38-318); Creatinine Random Urine 11 mg/dL (20-275)
== END 2022-10-29 20:30 | disposition left against medical advice (07) | DRG 644 ==
LOC: ANHED 21:06 → ANH2MED 10-28 00:12 → ANHICU 10-28 00:49
PROVIDERS: Internal Medicine; Internal Medicine Nephrology; Admitting Provider Internal Medicine; Emergency Provider Emergency Medicine; PCP Family Medicine; Visit Provider Physician Assistant
DX: E22.2 Syndrome of inappropriate secretion of antidiuretic hormone (principal); E87.20 Acidosis, unspecified; M62.82 Rhabdomyolysis; F41.9 Anxiety disorder, unspecified; Z87.891 Personal history of nicotine dependence; S00.512A Abrasion of oral cavity, initial encounter; R41.82 Altered mental status, unspecified; R56.9 Unspecified convulsions; F10.90 Alcohol use, unspecified, uncomplicated; R77.8 Other specified abnormalities of plasma proteins; X58.XXXA Exposure to other specified factors, initial encounter
CPT/HCPCS: 36415; 36569; 51702; 70450; 70551; 71045; 80048; 80053; 80307; 81003; 82436; 82550; 82570; 82803; 82948; 83605; 83735; 83930; 83935; 84100; 84295; 84300; 84443; 84484; 85025; 85027; 93005; 93306; 95816; 96361; 96374; 96375; 99291; A9270; C1751; J1200; J1630; J2060; J2405; J2597; J3411; J7030; J7060; J7131